=== PATIENT | male | born 1970 | race Caucasian/White ===

== ENCOUNTER 2017-01-19 10:15 | Emergency (ER) | payer OTHER ==
[~2017-01-19] VITALS: Ht 180.3 cm; Wt 84.1 kg
[2017-01-19] MEDS ORDERED: IBUPROFEN 800 MG TABLET PO ONE (10:45)
[2017-01-19 11:31] VITALS: BP 143/95
== END 2017-01-19 11:52 | disposition home or self-care (01) ==
LOC: EMS 10:17
DX: S90.121A Contusion of right lesser toe(s) without damage to nail, initial encounter (principal); B35.1 Tinea unguium; Z98.890 Other specified postprocedural states; X58.XXXA Exposure to other specified factors, initial encounter; Y93.89 Activity, other specified; Y92.89 Other specified places as the place of occurrence of the external cause; Y99.8 Other external cause status
CPT/HCPCS: 99284

== ENCOUNTER 2018-01-01 11:45 | Emergency (ER) | payer OTHER ==
[~2018-01-01] VITALS: Ht 180.3 cm; Wt 84.1 kg
[2018-01-01 13:32] VITALS: BP 157/78
== END 2018-01-01 13:39 | disposition home or self-care (01) ==
LOC: EMS 11:47
DX: M79.674 Pain in right toe(s) (principal); R03.0 Elevated blood-pressure reading, without diagnosis of hypertension; K08.89 Other specified disorders of teeth and supporting structures